=== PATIENT | female | born 1935 | race Caucasian/White ===

== ENCOUNTER 2016-11-02 09:10 | Day surgery (SDC) | payer MEDICARE ==
[~2016-11-02] VITALS: Ht 162.6 cm; Wt 77.6 kg
[~2016-11-02 09:10] MED LIST: 0.9% Sodium Chloride 1,000 ML IV SCH; ASPI-973 PO; CHOL10008 PO; DOCU250C2 PO; HYDR-4003 PO; LISI-567 PO; METO-272 PO; MILK500C PO; OXYB10TA PO; SOMA350 PO; Sodium Chloride LOK Flush 10 mL Syringe IV PRN; fentaNYL-PF 50 mCg/mL 2 mL Inj IVPUSH PRN
[2016-11-02 09:38] VITALS: BP 123/67; PULSE 67; RESP 16; O2SAT 98
[2016-11-02] MEDS ORDERED: POLY17PO6 PO (09:41)
[2016-11-02 10:56] VITALS: BP 106/54; PULSE 67; RESP 15; O2SAT 100
[2016-11-02 11:06] VITALS: BP 108/59; PULSE 66; RESP 15; O2SAT 98
--- NOTE | 2016-11-02 22:40 | ENDO ---
[address] [address] ENDOSCOPY PROCEDURE PATIENT: JOHN RODAS : 1935 MR#: [id number] ADMIT: 11/02/2016 JOB ID: [id number] DATE OF PROCEDURE: 11/02/2016 PRIMARY PROVIDER: Casey Bravo DO. PROCEDURE: Colonoscopy with hot and cold snare polypectomy. INDICATIONS: A 81-year-old female with a personal history of adenomatous colon polyps, has had a change in bowel habit over the last year with a tendency toward constipation. She uses Vicodin some six times per month or so. EQUIPMENT: [id number]. SEDATION: 1. Versed 2 mg. 2. Fentanyl 50 mcg. COMPLICATIONS: None identified. BOWEL PREPARATION: Fair, adequate exam. PROCEDURE INFORMATION: After the risks and benefits were explained, written and verbal informed consent was obtained. The patient was brought into the endoscopy suite and placed into the left lateral decubitus position. Sedation was achieved using the above-stated medications with the addition of oxygen via nasal cannula. A digital rectal examination was accomplished. Mild internal hemorrhoids noted. The scope was introduced into the rectum and advanced under direct visualization to the cecum as identified by the appendiceal orifice and ileocecal valve. The scope was slowly withdrawn to carefully examine the mucosa for any defects or lesions. Retroflexed views were avoided in the rectum. Multiple direct views were made through the dentate line for exclusion of pathology. The colon was decompressed. The scope was removed from the patient who tolerated the procedure well. FINDINGS: There was some diverticulosis in the left colon. Slightly tortuous rectosigmoid region. Starting in the ascending and then through mid colon there were three polyps removed by way of hot and cold snare polypectomy (two by way of hot snare.) I did not see any strictures. No mass lesions. The patient is taking aspirin and the mucosa was noted to be fairly friable. Even with suction polyp created by the scope there was a little contact bleeding and this could be induced in many locations throughout. ENDOSCOPIC DIAGNOSES: 1. Colon polyps. 2. Diverticulosis. 3. Hemorrhoids. RECOMMENDATIONS: 1. Await histopathology. 2. Repeat colonoscopy in three years. 3. Fiber supplementation with 2 tablespoons ground flaxseed fiber mixed with 8 ounces of water or juice daily would be advisable.
--- NOTE | 2016-11-03 10:10 | PATH ---
SURGICAL PATHOLOGY Attending Physician:Johnson Rayo CASE STATUS: Signed Out PATIENT NAME: JOHN RODAS PID: [id number] : 1935 DATE COLLECTED:11/02/2016 21:21 SPECIMEN: Colon, Biopsy CLINICAL HISTORY: HISTORY OF COLON POLYPS 1). COLON POLYPS FINAL DIAGNOSIS: 1.COLON POLYPS: TUBULAR ADENOMA INVOLVING MULTIPLE BIOPSY FRAGMENTS. ICD10 D12.6 GROSS DESCRIPTION: The specimen is received in one formalin filled container labeled with the patient's name, sublabeled "colon polyps" and consists of multiple portions of tissue which aggregate to 0 x 3 x 0.3 x 0.2 CM. The specimen is entirely submitted in one cassette. 11/02/2016 [facility] MICRO DESCRIPTION: See diagnosis. ICD-9 CODES: CPT CODES: 1: 00499 Electronically Signed Out Chevy Gray MD [facility] Pathology [facility] [address], [place] [address] Technical component performed at [facility] [address], [place], [address]
== END 2016-11-02 23:59 | disposition home or self-care (01) ==
LOC: END 09:10
PROVIDERS: ATTEND Internal Medicine Gastroenterology
DX: D12.2 Benign neoplasm of ascending colon (principal); K59.00 Constipation, unspecified; K57.30 Diverticulosis of large intestine without perforation or abscess without bleeding; K64.8 Other hemorrhoids; I10 Essential (primary) hypertension; E11.9 Type 2 diabetes mellitus without complications; Z79.82 Long term (current) use of aspirin
CPT/HCPCS: 45385; 99153; G0500; J7030